=== PATIENT | male | born 2000 | race Caucasian/White ===

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

== ENCOUNTER 2018-09-18 13:10 | Emergency (ER) | payer OTHER ==
[~2018-09-18] VITALS: Ht 188 cm; Wt 77.3 kg
[2018-09-18] MEDS ORDERED: NORCO 10-325 T1 EACH PO (14:23)
[2018-09-18] MEDS ORDERED: SEPTRA DS 8001 TAB PO (14:23)
[2018-09-18 14:39] VITALS: BP 106/72
== END 2018-09-18 14:44 | disposition home or self-care (01) ==
LOC: ED 13:10
DX: L03.115 Cellulitis of right lower limb (principal); F17.210 Nicotine dependence, cigarettes, uncomplicated